=== PATIENT | male | born 1980 | race Caucasian/White ===

== ENCOUNTER 2018-09-25 20:30 | Emergency (ER) | payer OTHER ==
[~2018-09-25] VITALS: Ht 170.2 cm; Wt 85.3 kg
[2018-09-25 20:33] VITALS: BP 141/95
--- NOTE | 2018-09-25 20:36 | NUR ---
PT AMBULATED TO LOBBY WITH VSS. PT STATES DIZZY BUT WITHOUT CHANE/LOSS OF BALANCE. ACCOMPANIED BY .
--- NOTE | 2018-09-25 22:01 | NUR ---
PT STATES FEELING BETTER AND THAT HE FEELS HE DOES NOT NEED TO BE SEEN BY THE ER PHYSICIAN. NO LONG FEELING DIZZY OR HAVING PALPITATIONS. VSS.
--- NOTE | 2018-09-25 22:01 | NUR ---
PATIENT LEFT WITHOUT BEING SEEN BY DR. CARDENAS. NO FURTHER CARE PROVIDED FOR PATIENT.
== END 2018-09-25 22:01 | disposition left against medical advice (07) ==
LOC: MED 20:30
DX: R42 Dizziness and giddiness (principal); Z53.21 Procedure and treatment not carried out due to patient leaving prior to being seen by health care provider